=== PATIENT | female | born 1945 | race Caucasian/White ===

== ENCOUNTER → 2016-11-10 | Outpatient (CLI) | payer MEDICARE, OTHER ==
--- NOTE | 2016-11-10 20:23 | Diagnostic Imaging Report ---
Three views of the right foot. INDICATION: Right foot pain. FINDINGS: No fracture, dislocation or radiopaque foreign body is seen. There is satisfactory joint alignment seen. Prominent calcaneal spur is noted. There is also ossification along the distal aspect of the Achilles tendon with adjacent spurring at the calcaneus insertion site. Soft tissue swelling adjacent to the distal Achilles tendon site and also at the undersurface of the heel seen. There are degenerative changes also noted at the intertarsal joints and the interphalangeal joints. IMPRESSION: There are prominent calcaneal spurs and spurring at the distal Achilles tendon insertion site seen with adjacent soft tissue swelling posteriorly and at the undersurface of the heel. Dictated by: Dictated on workstation # [id number]
--- NOTE | 2016-11-10 20:25 | Diagnostic Imaging Report ---
Two views of the right heel. INDICATION: Heel pain. Calcaneus spur. FINDINGS: There is prominent spurring along the calcaneus undersurface and posteriorly along the insertion of the Achilles tendon with associated soft tissue swelling. No fracture or dislocation is seen. Degenerative sclerotic change at the subtalar joint is seen. IMPRESSION: Prominent calcaneal spur and spurring at the insertion of the Achilles tendon site with adjacent soft tissue swelling is seen. Dictated by: Dictated on workstation # [id number]
== END ==
LOC: RAD 16:16
DX: M77.31 Calcaneal spur, right foot (principal)
CPT/HCPCS: 73630; 73650

== ENCOUNTER 2022-04-23 18:45 | Observation (INO) | payer MEDICARE, OTHER ==
[~2022-04-23] VITALS: Ht 152 cm; Wt 75.0 kg
[2022-04-23 20:03] LABS: BASOPHILS % (AUTO) 1 % (0-10); EOSINOPHILS # (AUTO) 0.4 10^3/uL (0.0-0.3); EOSINOPHILS % (AUTO) 7 % (0-10); HEMATOCRIT 30 % (35-52); HEMOGLOBIN 9.6 g/dL (11.5-16.0); LYMPHOCYTES # (AUTO) 0.9 10^3/uL (1.0-4.0); LYMPHOCYTES % (AUTO) 14 % (12-44); MEAN CORPUSCULAR HEMOGLOBIN 28 pg (25-34); MEAN CORPUSCULAR HGB CONC 32 g/dL (32-36); MEAN CORPUSCULAR VOLUME 87 fL (80-99); MEAN PLATELET VOLUME 9.5 fL (9.0-12.2); MONOCYTES # (AUTO) 0.6 10^3/uL (0.0-1.0); MONOCYTES % (AUTO) 10 % (0-12); NEUTROPHILS # (AUTO) 4.4 10^3/uL (1.8-7.8); NEUTROPHILS % (AUTO) 68 % (42-75); PLATELET COUNT 127 10^3/uL (130-400); WHITE BLOOD COUNT 6.4 10^3/uL (4.3-11.0)
--- NOTE | 2022-04-23 20:13 | Diagnostic Imaging Report ---
PROCEDURE: CT head without contrast. TECHNIQUE: Multiple contiguous axial images were obtained through the brain without the use of intravenous contrast. Auto Exposure Controls were utilized during the CT exam to meet ALARA standards for radiation dose reduction. INDICATION: Altered mental status. Ataxic gait. COMPARISON: None. FINDINGS: Moderate generalized parenchymal volume loss and leukoaraiosis. Chronic lacunar infarct in the left thalamus. No intracranial hemorrhage, mass effect, hydrocephalus or extra-axial fluid collection. No CT evidence of a territorial infarction. Osseous structures are intact. Mastoids are clear. Mucosal thickening in the ethmoid and maxillary sinuses. IMPRESSION: 1. No acute intracranial CT finding. 2. Lacunar infarct in the left thalamus appears to be chronic. 3. Mucosal thickening in the maxillary and ethmoid sinuses. Dictated by: Dictated on workstation # [id number]
[2022-04-23 20:15] LABS: BILIRUBIN,URINE NEGATIVE (NEGATIVE); CLARITY,URINE CLEAR; COLOR,URINE YELLOW; GLUCOSE, URINE (UA) NEGATIVE (NEGATIVE); KETONES,URINE NEGATIVE (NEGATIVE); LEUKOCYTE ESTERASE ,URINE TRACE (NEGATIVE); NITRITE,URINE NEGATIVE (NEGATIVE); PH,URINE 6.5 (5-9); PROTEIN,URINE TRACE (NEGATIVE)
[2022-04-23 20:19] LABS: ALBUMIN 3.9 GM/DL (3.2-4.5); BILIRUBIN,TOTAL 0.4 MG/DL (0.1-1.0); CALCIUM 9.3 MG/DL (8.5-10.1); CREATININE SERUM 0.95 MG/DL (0.60-1.30); POTASSIUM 3.8 MMOL/L (3.6-5.0); TOTAL PROTEIN 7.3 GM/DL (6.4-8.2)
[2022-04-23 20:21] LABS: BACTERIA,URINE NEGATIVE /HPF; RBC,URINE RARE /HPF
--- NOTE | 2022-04-23 21:18 | ED Neurological Problem ---
General Chief Complaint: Neurological Problems Stated Complaint: CONFUSION Nursing Triage Note: patient ambulatory to ER w c/o confusion. Patient states "I am just fine, he is just in a panic." Patients states she is confused and couldn't get her sock off her foot at home. Patients states "she is usually on top of everything. Everything has to be perfect so I know something is wrong." Patient agitated with . Source: patient, family () Exam Limitations: no limitations History of Present Illness Date Seen by Provider: Apr 23, 2022 Time Seen by Provider: 19:10 Initial Comments Addie is a 76-year-old who presents to the emergency department today with her chief complaint of "confusion". She is quite belligerent at initial presentation stating she does not need to be in the emergency department. she is just "tired". She states she got up at 6 AM, drove to [place], she and her spent all day there. At some point in the afternoon her stated she started to act a little confused. After they got home she was attempting to take off her stockings, fumbled with them for quite a while was able to get 1 off and then tried to get the same one off the second time. He states she is very detail oriented and never confused. No falls. No injuries. No speech difficulties. No recent fevers, chills. She does endorse some incontinence that has started occurring over the last 2 weeks without dysuria urgency or frequency. No abnormal bowel movements. She has not missed or skipped any of her daily medications. She is a diabetic. She states she had not eaten all day today. Her blood sugar is 170. Unknown specific time of onset of symptoms this afternoon. All other review of systems reviewed and negative except as stated Timing/Duration: other (Unknown) Severity: mild Associated Symptoms: fatigue Allergies and Home Medications Allergies Coded Allergies: Penicillins (Verified Allergy, Unknown, 04/23/22) Patient Home Medication List Home Medication List Reviewed: Yes Review of Systems Review of Systems Constitutional: see HPI Eyes: No Symptoms Reported Ears, Nose, Mouth, Throat: no symptoms reported Respiratory: no symptoms reported Cardiovascular: no symptoms reported Gastrointestinal: no symptoms reported Genitourinary: incontinence (urge) : No Musculoskeletal: no symptoms reported Skin: no symptoms reported Psychiatric/Neurological: No Symptoms Reported Endocrine: Other (fatigue) All Other Systems Reviewed Negative Unless Noted: Yes Past Uonhoxl-Nwhiwu-Qxpiss Hx Patient Social History Tobacco Use?: No Substance use?: No Alcohol Use?: No Physical Exam Vital Signs Capillary Refill : Less Than 3 Seconds Height, Weight, BMI Height: '" Weight: lbs. oz. kg; 31.00 BMI Method: General Appearance: WD/WN, no apparent distress HEENT: PERRL/EOMI, pharynx normal Respiratory: lungs clear, normal breath sounds, no respiratory distress, no accessory muscle use Cardiovascular: regular rate, rhythm, systolic murmur (loud systolic murmur) Gastrointestinal: normal bowel sounds, non tender, soft Extremities: normal range of motion, non-tender, normal inspection, no pedal edema, normal capillary refill Neurologic/Psychiatric: alert, normal mood/affect, oriented x 3 (missed the year intitially "1922", corrected herself when I pointed it out; called our location "[place]" but corrected herself) Crainal Nerves: normal hearing, normal speech, PERRL; No abnormal eye position, No abnormal gag reflex, No abnormal speech, No facial asymmetry, No facial droop, No facial paresthesias, No facial weakness, No hearing deficit (R), No hearing deficit (L), No tongue deviation to R, No tongue deviation to L; other (trouble tracking gaze to the left; seemed to "past point" on finger to nose morewhen gaze deviated to the left) Coordination/Gait: ABN nose to finger (R), ABN nose to finger (L) (only when holding finger to the patient's left side; ?possiblelateral visual field def icit, although the patient states that she has lateral visual field.) Motor/Sensory: no motor deficit, no sensory deficit, no pronator drift Skin: normal color, warm/dry Stroke Onset of Symptoms Date of Onset of Symptoms: Apr 23, 2022 Onset of Symptoms: No Symptoms onset unknown: Yes NIH Stroke Scale Assessment Select: Initial Level of Consciousness: 0=Alert (0), Level of Consciousness- Questions: 0=Answers both month/age (0), LOC Commands: 0=Performs both tasks (0), Gaze: Normal (0), Visual Stewart: 1=Partial hemianopia (1), Facial Movement (Facial Paresis): 0=Normal symmetrical mnt (0), Motor Function-Arms Right: 0=No drift (0), Motor Function-Arms Left: 0=No drift (0), Motor Function-Legs Right: 0=No drift (0), Motor Function-Legs Left: 0=No drift (0), Limb Ataxia: 0=Absent (0), Sensory: 0=Normal:no loss (0), Best Language: 0=No aphasia (0), Dysarthria: 0=Normal (0), Extinction & Inattention: 0=No ab normality (0), Total: 1 Stroke Thrombolytic Exclusion Age 18 or Over: Yes Acute intenal hemorrhage: No History of CVA: No Uncontrolled Coagulation Defec: No Intracranial Hemorrhage: No Severe Hypertension: No GI or Bleed: No Subarachnoid Hemorrhage: No Intracranial Neoplasm/Aneurysm: No Oral Anticoagulants: No Surgery or Trauma: No Puncture of Non-Compressible V: No Recent CPR: No Diabetic Hemorrhagic Retinopat: No Organ Biopsy: No Recent Obstetric Delivery: No Glucose: No Significant Hepatic Dysfunctio: No NIH Stoke Scale >22: No Bacterial Endocarditis: No Pericarditis: No Improving Symptoms: No Platelets: No TPA Contraindication: Yes IV - TPa Received IV - TPa Procedure Performed?: No Progress/Results/Core Measures Results/Orders Lab Results My Orders Vital Signs/I&O Blood Pressure Mean: 108 FSBG Bedside Testing Finger Stick Blood Glucose: 178 Blood Glucose Action Taken: DR. MADRIGAL NOTIFIED. Progress Progress Note : Time: 21:10 Progress Note Patient seen and examined by me. 76yo with "confusion" per . Unknown specific time of onset. Eval today includes physical exam with neuro exam, CBC, BMP, UA and CT head without contrast, EKG and CXR. Patient's physical exam pertinent for a slight bit of confusion - patient had to correct herself on year and location. She had difficulty with finger to nose/tracking, especially with gaze to the left. She did not have smooth pursuit when tracking left. It almost seemed she had a lateral visual field loss on the left. Heart was regular with loud blowing systolic murmur - patient states she has known about this for years, however her former PCP stated to her this was "not a big deal". No LE edema, benign abdominal exam. DDx based on H&P includes, CVA/TIA, brain mass, infection/sepsis. Labs and imaging reviewed. Patient is slightly anemic (she states she has had a hemoglobin of "10" since she was 13yo); platelets down a little at 120. CHem normal. UA not infected. Brain CT shows likely old right thalamic infarct. EKG unremarkable for any acute ST segment change, although she does have prolonged QT interval, premature atrial contractions and a first degree AV block, Chest xray, prominence of the nadine bilaterally and atelectasis of left base. Rad recc Chest CT to further delineate. Based on the totality of physical exam findings and lab/imaging results, I thought it best to admit the patient for further eval. She states she has never had an echo or carotid US. Will admit to Dr Roberts [facility] to cardiac stepdown floor for monitoring and further workup. Initial ECG Impression Date: Apr 23, 2022 Initial ECG Impression Time: 19:55 Initial ECG Rate: 81 Initial ECG Rhythm: Normal Sinus Comment PAC; prolonged QTC; 1st degree AVB, no significant ST elevation or depression Diagnostic Imaging Diagonstic Imaging: CT Comments [facility] [place] NAME: ADDIE FUENTES [facility] REC#: [id number] PT STATUS: REG ER : 1945 PHYSICIAN: ANSLEY MADRIGAL MD ADMIT DATE: 04/23/22/ER Signed Date of Exam:04/23/22 CT HEAD WO PROCEDURE: CT head without contrast. TECHNIQUE: Multiple contiguous axial images were obtained through the brain without the use of intravenous contrast. Auto Exposure Controls were utilized during the CT exam to meet ALARA standards for radiation dose reduction. INDICATION: Altered mental status. Ataxic gait. COMPARISON: None. FINDINGS: Moderate generalized parenchymal volume loss and leukoaraiosis. Chronic lacunar infarct in the left thalamus. No intracranial hemorrhage, mass effect, hydrocephalus or extra-axial fluid collection. No CT evidence of a territorial infarction. Osseous structures are intact. Mastoids are clear. Mucosal thickening in the ethmoid and maxillary sinuses. IMPRESSION: 1. No acute intracranial CT finding. 2. Lacunar infarct in the left thalamus appears to be chronic. 3. Mucosal thickening in the maxillary and ethmoid sinuses. Dictated by: Dictated on workstation # [id number] Dict: 04/23/222007 Trans: 04/23/222103 [facility] [id number] Interpreted by: CATE ZIMMERMAN MD Electronically signed by: CATE ZIMMERMAN MD 04/23/222103 Diagonstic Imaging: Xray Plain Films/CT/US/NM/MRI: chest Comments [facility] [place] NAME: ADDIE FUENTES [facility] REC#: [id number] PT STATUS: REG ER : 1945 PHYSICIAN: ANSLEY MADRIGAL MD ADMIT DATE: 04/23/22/ER Signed Date of Exam:04/23/22 CHEST 1 VIEW, AP/PA ONLY EXAM: Chest 1 view, AP/PA only INDICATION: TIA. COMPARISON: None. FINDINGS: Normal heart size and central pulmonary vascularity. There is prominence of the nadine, bilaterally. Mild atelectasis or infiltrate in the right lung base. No pleural effusion or pneumothorax. No acute osseous finding. IMPRESSION: 1. Mild nonspecific prominence of the nadine, bilaterally. No priors are available for comparison. Findings could be due to some mild pulmonary vascular congestion. However, mediastinal lymphadenopathy cannot be excluded. Recommend chest CT for further evaluation. 2. Mild atelectasis or infiltrate in the right lung base. Dictated by: Dictated on workstation # [id number] Dict: 04/23/222154 Trans: 04/23/222215 [facility] [id number] Interpreted by: CATE ZIMMERMAN MD Electronically signed by: CATE ZIMMERMAN MD 04/23/222215 Departure Communication (Admissions) Time/Spoke to Admitting Phy: 21:[address] Roberts, hospitalist on [facility] medicine [facility] Time/Spoke to Consulting Phy: 21:[address] Saldana Impression Primary Impression: TIA (transient ischemic attack) Additional Impressions: Cardiac murmur Diabetes Qualified Codes: E11.69 - Type 2 diabetes mellitus with other specified complication Disposition: ADMITTED INPATIENT Condition: Stable Admissions Decision to Admit Reason: Admit from ER (General) Decision to Admit/Date: Apr 23, 2022 Time/Decision to Admit Time: 21:25 Departure-Patient Inst. Referrals: [facility] (PCP/Family) Primary Care Physician ANSLEY MADRIGAL MD Apr 23, 2022 21:17
--- NOTE | 2022-04-23 21:59 | Diagnostic Imaging Report ---
EXAM: Chest 1 view, AP/PA only INDICATION: TIA. COMPARISON: None. FINDINGS: Normal heart size and central pulmonary vascularity. There is prominence of the nadine, bilaterally. Mild atelectasis or infiltrate in the right lung base. No pleural effusion or pneumothorax. No acute osseous finding. IMPRESSION: 1. Mild nonspecific prominence of the nadine, bilaterally. No priors are available for comparison. Findings could be due to some mild pulmonary vascular congestion. However, mediastinal lymphadenopathy cannot be excluded. Recommend chest CT for further evaluation. 2. Mild atelectasis or infiltrate in the right lung base. Dictated by: Dictated on workstation # [id number]
[2022-04-23] MEDS ORDERED: ASPIRIN 81 MG CHEW (CHILDREN'S ASA) PO STA (23:42)
[2022-04-24] VITALS (12 sets, daily range): BP systolic 152–180; BP diastolic 70–111
[2022-04-24 04:16] LABS: BASOPHILS % (AUTO) 1 % (0-10); EOSINOPHILS # (AUTO) 0.4 10^3/uL (0.0-0.3); EOSINOPHILS % (AUTO) 6 % (0-10); HEMATOCRIT 29 % (35-52); HEMOGLOBIN 8.8 g/dL (11.5-16.0); LYMPHOCYTES # (AUTO) 1.5 10^3/uL (1.0-4.0); LYMPHOCYTES % (AUTO) 26 % (12-44); MEAN CORPUSCULAR HEMOGLOBIN 27 pg (25-34); MEAN CORPUSCULAR HGB CONC 31 g/dL (32-36); MEAN CORPUSCULAR VOLUME 88 fL (80-99); MEAN PLATELET VOLUME 10.1 fL (9.0-12.2); MONOCYTES # (AUTO) 0.7 10^3/uL (0.0-1.0); MONOCYTES % (AUTO) 11 % (0-12); NEUTROPHILS # (AUTO) 3.3 10^3/uL (1.8-7.8); NEUTROPHILS % (AUTO) 56 % (42-75); PLATELET COUNT 120 10^3/uL (130-400); WHITE BLOOD COUNT 5.8 10^3/uL (4.3-11.0)
[2022-04-24 04:43] LABS: ALBUMIN 3.5 GM/DL (3.2-4.5); BILIRUBIN,TOTAL 0.4 MG/DL (0.1-1.0); CALCIUM 8.8 MG/DL (8.5-10.1); CREATININE SERUM 0.83 MG/DL (0.60-1.30); POTASSIUM 3.7 MMOL/L (3.6-5.0); TOTAL PROTEIN 6.6 GM/DL (6.4-8.2)
--- NOTE | 2022-04-24 05:50 | History & Physical-Hospitalist ---
History of Present Illness HPI/Chief Complaint CC: TIA HPI: This is a 76yoWF clinic patient of [facility] who presented to the ER with complaints of non-specific neuro deficits concerning for a TIA. CT normal and no neuro deficits are noted today. ASA given and ECHO revealed significant valvular heart disease so it will need close f/u with Dr Barbosa. Source: patient, family Exam Limitations: no limitations Date Seen 04/24/22 Time Seen by a Provider: 11:00 Attending Physician [place] PCP Admitting Physician: Antonette Roberts DO Attending Physician: Antonette Roberts DO Referring Physician Date of Admission Apr 23, 2022 at 18:47 Home Medications & Allergies Home Medications Reviewed patient Home Medication Reconciliation performed by pharmacy medication reconciliations pathology lab technician and/or nursing. Patients Allergies have been reviewed. Allergies Allergies Coded Allergies Penicillins (Verified Allergy, Unknown, 04/23/22) Past Oshjggi-Ybvzpm-Pbxgvc Hx Patient Social History Marrital Status: Employed/Student: retired Tobacco Use?: No Smoking Status: Never a Smoker Use of E-Cig and/or Vaping dev: No Substance use?: No Alcohol Use?: No Pt feels they are or have been: No Immunizations Up To Date Tetanus Booster (TDap): Unknown Hepatitis A: No Hepatitis B: No Current Status status: No status: No Advance Directives: No Communicates: Verbally Primary Language: Ghanaian Preferred Spoken Language: Ghanaian Is interpretation needed?: No Implanted or Applied Medical D: None Past Medical History Diabetes, Non-Insulin dep Review of Systems Constitutional: see HPI, malaise, weakness EENTM: no symptoms reported Respiratory: no symptoms reported Cardiovascular: no symptoms reported Gastrointestinal: no symptoms reported Genitourinary: no symptoms reported Musculoskeletal: no symptoms reported Skin: no symptoms reported Psychiatric/Neurological: No Symptoms Reported All Other Systems Reviewed Negative Unless Noted: Yes Physical Exam Physical Exam Vital Signs Vital Signs - First Documented 04/23/22 18:54 Temp 35.4 Pulse 82 Resp 18 B/P (MAP) 203/61 (108) Pulse Ox 98 O2 Delivery Room Air Capillary Refill : Less Than 3 Seconds Height, Weight, BMI Height: '" Weight: lbs. oz. kg; 32.46 BMI Method: General Appearance: No Apparent Distress, Chronically ill Eyes: Right Eye Normal Inspection, Right Eye PERRL HEENT: PERRL/EOMI, Normal ENT Inspection, Pharynx Normal, Moist Mucous Membranes Neck: Full Range of Motion, Normal Inspection, Non Tender Respiratory: Chest Non Tender, Lungs Clear, Normal Breath Sounds, No Accessory Muscle Use, No Respiratory Distress Cardiovascular: Regular Rate, Rhythm, No Edema, No Gallop, No JVD, Normal Peripheral Pulses, Systolic Murmur Gastrointestinal: Normal Bowel Sounds, No Organomegaly, No Pulsatile Mass, Non Tender, Soft Back: Normal Inspection, No CVA Tenderness, No Vertebral Tenderness Extremity: Normal Capillary Refill, Normal Inspection, Normal Range of Motion, Non Tender, No Calf Tenderness, No Pedal Edema Neurologic/Psychiatric: Alert, Oriented x3, No Motor/Sensory Deficits, Normal Mood/Affect Skin: Normal Color, Warm/Dry Lymphatic: No Adenopathy Results Results/Procedures Labs Laboratory Tests 04/23/22 19:49 04/24/22 03:52 Patient resulted labs reviewed. Assessment/Plan Admission Diagnosis Assessment: TIA Cardiac murmur with mitral and aortic stenosis DM Plan: Monitor closely ECHO Cardiology consultation Admission Status: Observation Diagnosis/Problems Diagnosis/Problems (1) TIA (transient ischemic attack) Status: Acute (2) Cardiac murmur Status: Acute (3) Diabetes Status: Acute Qualifiers: Diabetes mellitus type: type 2 Diabetes mellitus adjunct faculty for medical terminology insulin use: without longterm use Diabetes mellitus complication status: with other specified complication Qualified Codes: E11.69 - Type 2 diabetes mellitus with other specified complication Clinical Quality Measures Stroke: Date of last known well: Apr 23, 2022 Symptoms onset unknown: Yes ANTONETTE ROBERTS DO Apr 24, 2022 05:50
[2022-04-24] MEDS ORDERED: MILK OF MAGNESIA 400 MG/5 ML 30 ML UDC PO PRN (06:00)
[2022-04-24] MEDS ORDERED: polyethylene glycoL POWDER 17 GM (MIRALAX) PACK PO PRN (06:00)
[2022-04-24] MEDS ORDERED: HYDROmorphone 2 MG/ML VIAL (DILAUDID) IV PRN (06:00)
[2022-04-24] MEDS ORDERED: KCL 20 MEQ TAB (K-DUR) PO SCH (06:00)
[2022-04-24] MEDS ORDERED: ANTACID SUSP 30 ML UDC (MYLANTA) PO PRN (06:00)
[2022-04-24] MEDS ORDERED: ONDANSETRON 4 MG/2 ML (SDV) Z0FRAN IV PRN (06:00)
[2022-04-24] MEDS ORDERED: diphenhydrAMINE 25 MG TAB (BENADRYL) PO PRN (06:00)
[2022-04-24] MEDS ORDERED: NS IV 500 ML 500 ML IV PRN (06:00)
[2022-04-24] MEDS ORDERED: LACTULOSE SYRUP 10GM/15ML (ENULOSE) 30ML UDC PO PRN (06:00)
[2022-04-24] MEDS ORDERED: ONDANSETRON 4 MG (ZOFRAN) ORAL DISSOLVE TAB PO PRN (06:00)
[2022-04-24] MEDS ORDERED: POTASSIUM CL 10MEQ/50ML IVPB 50 ML IV SCH (06:00)
[2022-04-24] MEDS ORDERED: diphenhydrAMINE 50 MG/ML INJ (BENADRYL) IVP PRN (06:00)
[2022-04-24] MEDS ORDERED: ACETAMINOPHEN 325 MG TABLET PO PRN (06:00)
[2022-04-24] MEDS ORDERED: MELATONIN 3 MG TABLET PO PRN (06:00)
[2022-04-24] MEDS ORDERED: MAGNESIUM 1 GM/100 ML IVPB 100 ML IV SCH (06:00)
[2022-04-24] MEDS ORDERED: CALCIUM CARBONATE 500 MG (TUMS) TAB.CHEW PO PRN (06:00)
[2022-04-24] MEDS ORDERED: BISACODYL 10 MG SUPP (DULCOLAX) PR PRN (06:00)
[2022-04-24] MEDS ORDERED: ENOXAPARIN 40 MG/0.4 ML (LOVENOX) SYR SC SCH (06:00)
[2022-04-24] MEDS ORDERED: KCL 20 MEQ TAB (K-DUR) PO ONE (08:00)
--- NOTE | 2022-04-24 08:20 | Tele-ICU Consult ---
History of Present Illness History of Present Illness Date Seen by Provider: Apr 24, 2022 Time Seen by Provider: 08:19 Date of Admission 04/24/22 History of Present Illness (Tele-ICU Physician , consultation) Available chart/ vitals / labs / Images reviewed H&P is from ER notes Patient's information available about PMH, allergy reviewed in EMR. ROS as per chart and RN report Video assessment done using teleICU camera, rest of exam as per RN Discussed with RN. 76-year-old female with past medical history of anemia of undetermined origin being followed by her primary physician presented to the emerged urgency room for confusion. CT of the head was done and showed no acute abnormality there is no mention of any fever nausea vomiting headache she was admitted to ICU for close monitoring and this a.m. and made a video visit and discussed with her she is found to be even though she was confused yesterday for ER note her platelet and hemoglobin found to be low, but MCV is normal. She was not told any time that she had any bone marrow abnormalities vitamin B12 was ordered and pending TSH is normal serum iron studies are pending. Impression 1. Confusional state the etiology of which is not clear. 2. Hilar prominence on the chest x-ray present needs to rule out any hilar adenopathy 1. You have hemoglobin being low in the low platelet without any definite etiology bone marrow disorders has to be ruled out. Recommendations 1. We will check her vitamin B12 and serum iron studies 2. Suggest bone marrow biopsy , could be done as an outpatient. 3. An MRI of the brain also suggested 4. CT of the chest with contrast to rule out any hilar adenopathy and malignancy. Coordination of care with bedside consultants and primary care physician. Discussed with the SECURITY ASSURANCE ANALYST and advised her to reach ou to telemetry ICU t for any questions or concerns. Allergies and Home Medications Allergies Coded Allergies: Penicillins (Verified Allergy, Unknown, 04/23/22) Past Medical/Social/Family Hx Patient Social History Tobacco Use?: No Use of E-Cig and/or Vaping dev: No Substance use?: No Alcohol Use?: No Pt stated abuse/neglect: No Immunizations Up To Date Influenza Vaccine Up-to-Date: Yes; Up-to-Date Tetanus Booster (TDap): Unknown Hepatitis A: No Hepatitis B: No TB Skin Test: None Current Status status: No status: No Advance Directives: No Communicates: Verbally Primary Language: Filipino Preferred Spoken Language: Filipino Is interpretation needed?: No Implanted or Applied Medical D: None Review of Systems Constitutional: no symptoms reported, see HPI Focused Exam Height, Weight, BMI Height: '" Weight: lbs. oz. kg; 32.46 BMI Method: Exam Exam Patient acknowledged, consented, and participated in this virtual visit which was conducted using real time audio/video Vital Signs Date Time Temp Pulse Resp B/P (MAP) Pulse Ox O2 Delivery O2 Flow Rate FiO2 04/24/22 08:00 37.2 78 16 153/74 (100) 98 Room Air 04/24/22 07:00 73 04/24/22 05:00 71 19 154/85 (108) 96 Room Air 04/24/22 04:00 77 16 153/70 (97) 95 Room Air 04/24/22 03:45 37.2 78 18 97 Room Air 04/24/22 03:00 70 28 152/90 (110) 96 Room Air 04/24/22 02:00 79 18 152/111 (125) 92 Room Air 04/24/22 01:30 83 18 97 Room Air 04/24/22 01:00 78 18 168/75 (106) 96 Room Air 04/24/22 00:45 78 15 165/109 (127) 98 Room Air 04/24/22 00:38 82 04/24/22 00:30 77 16 156/81 (106) 97 Room Air 04/24/22 00:15 36.5 84 20 180/105 (130) 97 Room Air 04/24/22 00:13 97 Room Air 04/24/22 00:07 35.4 75 16 152/78 96 Room Air 04/23/22 19:20 Room Air 04/23/22 18:54 35.4 82 18 203/61 (108) 98 Room Air I & O 04/24/22 07:00 Intake Total 100 ml Output Total 750 ml Balance -650 ml Height & Weight Height: '" Weight: lbs. oz. kg; 32.46 BMI Method: General Appearance: Anxious Capillary Refill: Less Than 3 Seconds Gastrointestinal: normal bowel sounds, non tender, soft Other comments I am remotely monitoring this patient from another state. I am unable to do the bedside exam, and history/physical and pertinent information is taken from other notes in the computer and bedside staff. . Results Lab Laboratory Tests 04/23/22 19:49 04/24/22 03:52 Assessment/Plan Assessment/Plan as above Critical Care: Critically Ill Patient Time spent with patient (mins): 31 MADELYN RAMIREZ MD Apr 24, 2022 08:19
[2022-04-24] MEDS ORDERED: DOCUSATE SODIUM 100 MG (COLACE) CAP PO SCH (09:00)
[2022-04-24] MEDS ORDERED: ASPIRIN E.C. 81 MG (ECOTRIN) TAB PO SCH (09:00)
[2022-04-24] MEDS ORDERED: SENNOSIDES 8.6 MG (SENOKOT) TAB PO SCH (09:00)
[2022-04-24] MEDS ORDERED: METF-397 PO (11:04)
[2022-04-24] MEDS ORDERED: ROSU10TA28 PO (11:04)
[2022-04-24] MEDS ORDERED: ASPI-1238 PO (11:05)
--- NOTE | 2022-04-24 12:07 | Physical Therapy Evaluation ---
PT Evaluation-General Medical Diagnosis Admission Date Apr 23, 2022 at 18:47 Medical Diagnosis: TIA Onset Date: Apr 24, 2022 Therapy Diagnosis Therapy Diagnosis: Impaired gait Precautions Precautions/Isolations: Fall Prevention, Standard Precautions Referral Reason for Referral: Evaluation/Treatment Medical History Pertinent Medical History: Atrial Fib Additional Medical History TIA, cardiac murmur Social History Home: Single Level Current Living Status: Significant Other Prior Prior Level of Function SCALE: Activities may be completed with or without assistive devices. 5-Cnmfxknjns-gxnkcpy completes the activity by him/herself with no assistance from a helper. 5-Set-up or Clean-up Assistance-helper sets up or cleans up; patient completes activity. [place] assists only prior to or following the activity. 4-Supervision or Touching Assistance-helper provides verbal cues and/or touching/steadying and/or contact guard assistance as patient completes activity. Assistance may be provided throughout the activity or intermittently. 3-Partial/Moderate Assistance-helper does LESS THAN HALF the effort. [place] lifts, holds or supports trunk or limbs, but provides less than half the effort. 2-Substantial/Maximal Assistance-helper does MORE THAN HALF the effort. [place] lifts or holds trunk or limbs and provides more than half the effort. 2-Gbybouvxe-jbxnud does ALL the effort. Patient does none of the effort to complete the activity. Or, the assistance of 2 or more helpers is required for the patient to complete the activity. If activity was not attempted, code reason: 7-Patient Refused. 9-Not Applicable-not attempted and the patient did not perform the activity befo re the current illness, exacerbation or injury. 10-Not Attempted due to Environmental Limitations-(lack of equipment, weather re straints, etc.). 88-Not Attempted due to Medical Conditions or Safety Concerns. Bed Mobility: 6 Transfers (B,C,W/C): 6 Gait: 6 Stairs: 6 PT Evaluation-Current Subjective Brought to ER by due to reported decline in mental status. Pt was having confusion and impaired motor planning. Objective Patient Orientation: Person, Place, Situation ROM/Strength Strength Upper Extremities 5/5 Strength Lower Extremities 5/5 Sensory Vision: Functional Hearing: Functional Sensation Right Upper Extremit: Intact Sensation Left Upper Extremity: Intact Sensation Right Lower Extremit: Intact Sensation Left Lower Extremity: Intact Transfers Roll Left to Right (QC): 6 Sit to Lying (QC): 6 Lying to Sitting/Side of Bed(Q: 6 Sit to Stand (QC): 6 Chair/Cqt-nk-Lmqvo Xfer(QC): 6 Pt was independent with mobility. Gait Does the Patient Walk?: Yes Mode of Locomotion: Walk Anticipated Mode of Locomotion: Walk Walk 150 ft (QC): 6 Distance: 300 Gait Assistive Device: None Comments/Gait Description Ambulate 300ft without device, minimal lateral deviation, no LOB. Pt very rushed and needed cues to slow down. Balance Sitting Static: Normal Sitting Dynamic: Normal Standing Static: Good Standing Dynamic: Good Assessment/Needs Pt had no focal strength deficit. She demonstrated independence with donning pants, bed mobility, transfers, and gait. Her biggest safety risk is that she is in a hurry with all tasks and doesn't allow time to consider safety during standing transfers and gait. Rehab Potential: Good PT Driver Starting [facility] Goals [facility] Goals PT Driver Starting Gate Goals Time Frame: Apr 24, 2022 Roll Left & Right (QC): 6 Sit to Lying (QC): 6 Lying-Sitting on Side/Bed(QC): 6 Sit to Stand (QC): 6 Chair/Olg-kq-Jszwz Xfer(QC): 6 PT Plan Problem List Problem List: Safety Treatment/Plan Treatment Plan: Continue Plan of Care, Discontinue PT, goals met Treatment Duration: Apr 24, 2022 Frequency: Discharge Recommendations Therapy Discharge Recommendati: Home & Family Target Placement home Time Time In: 1040 Time Out: 1100 DATE: Apr 24, 2022 Total Billed Treatment Time: 20 Total Billed Treatment visit, evaluation moderate complexity 20 min KRISHAN FOWLER PT Apr 24, 2022 12:07
--- NOTE | 2022-04-24 13:18 | Consultation-Cardiology ---
HPI-Cardiology Cardiology Consultation: Date of Consultation 04/24/22 Time Seen by a Provider: 12:50 Date of Admission Attending Physician [place] Admitting Physician Admitting Physician: Antonette Roberts DO Attending Physician: Antonette Roberts DO Consulting Physician EDITH WILSON MD, MA, FACP, FACC, [facility] [place], CCDS Physician requesting consult: Dr Roberts HPI: Chief Complaint: Reason for Card consult: Cardiac murmur 76 yo woman who was admitted to Dr Roberts's service on 04/23/22 with transient, mild confusion, although she herself denies it. Dr Roberts has asked us today to see her for a cardiac murmur. Ms. Dolan says murmur was first diagnosed well over 10 years ago. At one point, she saw a wooden shade hardware installer in [place], [place] for the murmur but no further w/u or f/u was advised. She denies cp or palp or syncope or shortness of breath or swelling. She denies focal weakness. Review of Systems-Cardiology Review of Systems Constitutional: No malaise, No tiredness, No weight loss Eyes: No vision change Ears/Nose/Throat: No ear discharge, No nasal drainage, No recent hearing loss Respiratory: As described under HPI Cardiovascular: As described under HPI Gastrointestinal: No diarrhea, No nausea, No vomiting Genitourinary: No dysuria, No hematuria, No urine frequency changes : No Musculoskeletal: back pain (chornic) Skin: No rash, No ulcerations Psychiatric/Neurological: No seizure, No focal weakness, No syncope Hematologic: No bleeding abnormalities All Other Systems Reviewed Negative Unless Noted: Yes GKR-Shvknj-Tqeitc Hx Patient Social History Have you traveled recently?: No Alcohol Use?: No Pt feels they are or have been: No Past Medical History PMH As described under Assessment. Family Medical History Family Medical History: She does not report fam h/o early CAD or SCD. Does not fam h/o strokes Allergies and Home Medications Allergies Coded Allergies: Penicillins (Verified Allergy, Unknown, 04/23/22) Patient Home Medication List Home Medication List Reviewed: Yes Aspirin (Aspirin EC) 81 Mg Tablet., 81 MG PO DAILY Prescribed by: ANTONETTE ROBERTS on 04/24/22 1105 Metformin HCl (Metformin HCl) 500 Mg Tablet, 500 MG PO UD, (Reported) Entered as Reported by: ANTONETTE ROBERTS on 04/24/221103 Last Action: New Order Rosuvastatin Calcium (Rosuvastatin Calcium) 10 Mg Tablet, 10 MG PO DAILY, (Reported) Entered as Reported by: ANTONETTE ROBERTS on 04/24/221103 Last Action: New Order Physical Exam-Cardiology Physical Exam Vital Signs/I&O 04/24/22 04/24/22 04/24/22 04/24/22 01:30 02:00 03:00 03:45 Temp 37.2 Pulse 83 79 70 78 Resp 18 18 28 18 B/P (MAP) 152/111 (125) 152/90 (110) Pulse Ox 97 92 96 97 O2 Delivery Room Air Room Air Room Air Room Air 04/24/22 04/24/22 04/24/22 04/24/22 04:00 05:00 07:00 08:00 Temp 37.2 Pulse 77 71 73 78 Resp 16 19 16 B/P (MAP) 153/70 (97) 154/85 (108) 153/74 (100) Pulse Ox 95 96 98 O2 Delivery Room Air Room Air Room Air 04/24/22 04/24/22 04/24/22 08:00 11:53 12:50 Temp 36.9 Pulse 78 75 Resp 24 B/P (MAP) 156/85 (108) Pulse Ox 97 95 O2 Delivery Room Air Room Air Capillary Refill : Less Than 3 Seconds Constitutional: AAO x 3, well-developed, well-nourished HEENT: EOMI, hearing is well preserved; No xanthelasmas are seen Neck: carotid pulses are 2 + bilaterally, with good upstrokes Respiratory: No accessory muscle use; chest expansion is symmetric, chest is bilaterally symmetric, other (fair to good, bilateral air entry) Cardiovascular: regular rate-rhythm, S1 and S2, systolic murmur (3/[address] base that radiates to the carotids) Gastrointestinal: No tender; soft; No guarding, No rebound; audible bowel sounds Extremities: No clubbing, No cyanosis, No significant edema Neurologic/Psychiatric: oriented x 3, other (moves all limbs equally) Skin: No rash on exposed areas, No ulcerations on exposed areas Data Review Labs Laboratory Tests 04/23/22 19:21: Glucometer 178H 04/23/22 19:25: Urine Color YELLOW, Urine Clarity CLEAR, Urine pH 6.5, Urine Specific [place] 1.020, Urine Protein TRACEH, Urine Glucose (UA) NEGATIVE, Urine Ketones N EGATIVE, Urine Nitrite NEGATIVE, Urine Bilirubin NEGATIVE, Urine Urobilinogen 1.0, Urine Leukocyte Esterase TRACEH, Urine RBC (Auto) 1+H, Urine RBC RARE, Urin e WBC NONE, Urine Squamous Epithelial Cells 2-5, Urine Crystals NONE, Urine Bacteria NEGATIVE, Urine Casts NONE, Urine Mucus NEGATIVE, Urine Culture Indicated NO 04/23/22 19:49: White Blood Count 6.4, Red Blood Count 3.47L, Hemoglobin 9.6L, Hematocrit 30L, Mean Corpuscular Volume 87, Mean Corpuscular Hemoglobin 28, Mean Corpuscular Hemoglobin Concent 32, Red Cell Distribution Width 13.6, Platelet Count 127L, Mean Platelet Volume 9.5, Immature Granulocyte % (Auto) 0, Neutrophils (%) (Auto) 68, Lymphocytes (%) (Auto) 14, Monocytes (%) (Auto) 10, Eosinophils (%) (Auto) 7, Basophils (%) (Auto) 1, Neutrophils # (Auto) 4.4, Lymphocytes # (Auto) 0.9L, Monocytes # (Auto) 0.6, Eosinophils # (Auto) 0.4H, Basophils # (Auto) 0.0, Immature Granulocyte # (Auto) 0.0, Sodium Level 141, Potassium Level 3.8, Chloride Level 103, Carbon Dioxide Level 28, Anion Gap 10, Blood Urea Nitrogen 17, Creatinine 0.95, Estimat Glomerular Filtration Rate 62, BUN/Creatinine Ratio 18, Glucose Level 177H, Calcium Level 9.3, Corrected Calcium 9.4, Total Bilirubin 0.4, Aspartate Amino Transf (AST/SGOT) 12, Alanine Aminotransferase (ALT/SGPT) 9, Alkaline Phosphatase 57, Total Protein 7.3, Albumin 3.9 04/24/22 03:52: White Blood Count 5.8, Red Blood Count 3.24L, Hemoglobin 8.8L, Hematocrit 29L, Mean Corpuscular Volume 88, Mean Corpuscular Hemoglobin 27, Mean Corpuscular Hemoglobin Concent 31L, Red Cell Distribution Width 13.6, Platelet Count 120L, Mean Platelet Volume 10.1, Immature Granulocyte % (Auto) 0, Neutrophils (%) (Auto) 56, Lymphocytes (%) (Auto) 26, Monocytes (%) (Auto) 11, Eosinophils (%) (Auto) 6, Basophils (%) (Auto) 1, Neutrophils # (Auto) 3.3, Lymphocytes # (Auto) 1.5, Monocytes # (Auto) 0.7, Eosinophils # (Auto) 0.4H, Basophils # (Auto) 0.0, Immature Granulocyte # (Auto) 0.0, Sodium Level 140, Potassium Level 3.7, Chloride Level 104, Carbon Dioxide Level 26, Anion Gap 10, Blood Urea Nitrogen 14, Creatinine 0.83, Estimat Glomerular Filtration Rate 73, BUN/Creatinine Ratio 17, Glucose Level 122H, Calcium Level 8.8, Corrected Calcium 9.2, Total Bilirubin 0.4, Aspartate Amino Transf (AST/SGOT) 11, Alanine Aminotransferase (ALT/SGPT) 8, Alkaline Phosphatase 52, Total Protein 6.6, Albumin 3.5, Triglycerides Level 36, Cholesterol Level 114, LDL Cholesterol Direct 45, VLDL Cholesterol 7, HDL Cholesterol 54, Thyroid Stimulating Hormone (TSH) 1.54 04/24/22 10:34: Glucometer 119H Laboratory Tests 04/23/22 19:49 04/24/22 03:52 A/P-Cardiology Assessment/Admission Diagnosis Transient confusion on 04/23/22, etiology undetermined - managed by Dr. 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 Mucosal thickening in the maxillary and ethmoid sinuses Cardiac systolic murmur suggestive of aortic valve sclerosis/stenosis DM II - treated with metformin, managed by pcp Hyperlipidemia - treated with statin, managed by pcp Hypertension Mild sinus node dysfunction - sinus alternating with ectopic atrial rhythm on ECG of 04/23/22 and subsequent telemetry (no bradycardia) Discussion and Recomendations * ASA because of old CVA * Toprol XL 25 daily for hypertension * Echo to eval murmur * Outpt card f/u recommended * We also recommend carotid u/s which can be done outpt if pt is to be d/c'd today Clinical Quality Measures Stroke: Date of last known well: Apr 23, 2022 Symptoms onset unknown: Yes EDITH WILSON MD FACP FAC CCDS Apr 24, 2022 13:18
[2022-04-24] MEDS ORDERED: METO-351 PO (16:58)
--- NOTE | 2022-04-24 16:58 | Discharge Summary ---
Discharge Summary Hospital Course Was the Problem List Reviewed?: Yes Problems/Dx: (1) TIA (transient ischemic attack) Status: Acute (2) Cardiac murmur Status: Acute Hospital Course Date of Admission: Apr 23, 2022 at 18:47 Admission Diagnosis : Family Physician[facility]Provider[facility] Date of Discharge: 04/24/22 Discharge Diagnosis: [ ] Hospital Course: see h&p Labs and Pending Lab Test: Laboratory Tests 04/23/22 19:21: Glucometer 178H 04/23/22 19:25: Urine Color YELLOW, Urine Clarity CLEAR, Urine pH 6.5, Urine Specific [place] 1.020, Urine Protein TRACEH, Urine Glucose (UA) NEGATIVE, Urine Ketones NEGATIVE, Urine Nitrite NEGATIVE, Urine Bilirubin NEGATIVE, Urine Urobilinogen 1.0, Urine Leukocyte Esterase TRACEH, Urine RBC (Auto) 1+H, Urine RBC RARE, Urine WBC NONE, Urine Squamous Epithelial Cells 2-5, Urine Crystals NONE, Urine Bacteria NEGATIVE, Urine Casts NONE, Urine Mucus NEGATIVE, Urine Culture Indicated NO 04/23/22 19:49: White Blood Count 6.4, Red Blood Count 3.47L, Hemoglobin 9.6L, Hematocrit 30L, Mean Corpuscular Volume 87, Mean Corpuscular Hemoglobin 28, Mean Corpuscular Hemoglobin Concent 32, Red Cell Distribution Width 13.6, Platelet Count 127L, Mean Platelet Volume 9.5, Immature Granulocyte % (Auto) 0, Neutrophils (%) (Auto) 68, Lymphocytes (%) (Auto) 14, Monocytes (%) (Auto) 10, Eosinophils (%) (Auto) 7, Basophils (%) (Auto) 1, Neutrophils # (Auto) 4.4, Lymphocytes # (Auto) 0.9L, Monocytes # (Auto) 0.6, Eosinophils # (Auto) 0.4H, Basophils # (Auto) 0.0, Immature Granulocyte # (Auto) 0.0, Sodium Level 141, Potassium Level 3.8, C hloride Level 103, Carbon Dioxide Level 28, Anion Gap 10, Blood Urea Nitrogen 17, Creatinine 0.95, Estimat Glomerular Filtration Rate 62, BUN/Creatinine Ratio 18, Glucose Level 177H, Calcium Level 9.3, Corrected Calcium 9.4, Iron Level [Pending], Total Iron Binding Capacity [Pending], Unsaturated Iron Binding Capacity [Pending], Transferrin % Saturation [Pending], Ferritin [Pending], Total Bilirubin 0.4, Aspartate Amino Transf (AST/SGOT) 12, Alanine Aminotransferase (ALT/SGPT) 9, Alkaline Phosphatase 57, Total Protein 7.3, Albumin 3.9 04/24/22 03:52: White Blood Count 5.8, Red Blood Count 3.24L, Hemoglobin 8.8L, Hematocrit 29L, Mean Corpuscular Volume 88, Mean Corpuscular Hemoglobin 27, Mean Corpuscular Hemoglobin Concent 31L, Red Cell Distribution Width 13.6, Platelet Count 120L, Mean Platelet Volume 10.1, Immature Granulocyte % (Auto) 0, Neutrophils (%) (Auto) 56, Lymphocytes (%) (Auto) 26, Monocytes (%) (Auto) 11, Eosinophils (%) (Auto) 6, Basophils (%) (Auto) 1, Neutrophils # (Auto) 3.3, Lymphocytes # (Auto) 1.5, Monocytes # (Auto) 0.7, Eosinophils # (Auto) 0.4H, Basophils # (Auto) 0.0, Immature Granulocyte # (Auto) 0.0, Sodium Level 140, Potassium Level 3.7, Chloride Level 104, Carbon Dioxide Level 26, Anion Gap 10, Blood Urea Nitrogen 14, Creatinine 0.83, Estimat Glomerular Filtration Rate 73, BUN/Creatinine Ratio 17, Glucose Level 122H, Calcium Level 8.8, Corrected Calcium 9.2, Iron Level [Pending], Total Bilirubin 0.4, Aspartate Amino Transf (AST/SGOT) 11, Alanine Aminotransferase (ALT/SGPT) 8, Alkaline Phosphatase 52, Total Protein 6.6, Albumin 3.5, Mean Blood Glucose [Pending], Hemoglobin A1c [Pending], Triglycerides Level 36, Cholesterol Level 114, LDL Cholesterol Direct 45, VLDL Cholesterol 7, HDL Cholesterol 54, Vitamin B12 Level [Pending], Thyroid Stimulating Hormone (TSH) 1.54 04/24/22 10:34: Glucometer 119H 04/24/22 15:31: Glucometer 109 Home Meds Active Aspirin EC (Aspirin) 81 Mg Tablet.dr 81 Mg PO DAILY Reported Rosuvastatin Calcium 10 Mg Tablet 10 Mg PO DAILY Metformin HCl 500 Mg Tablet 500 Mg PO UD 2 pills in am and 1 in evening Assessment/Pt Instructions pcp 1 week Discharge Planning: <30 minutes discharge planning Discharge Instructions Discharge Diet: No Restrictions Discharge Physical Examination Vital Signs Vital Signs Date Time Temp Pulse Resp B/P (MAP) Pulse Ox O2 Delivery O2 Flow Rate FiO2 04/24/22 16:00 36.9 73 18 166/83 (110) 97 Room Air Allergies: Coded Allergies: Penicillins (Verified Allergy, Unknown, 04/23/22) Discharge Summary Date of Admission Apr 23, 2022 at 18:47 Date of Discharge Discharge Date: Apr 24, 2022 Clinical Quality Measures Stroke: Date of last known well: Apr 23, 2022 Symptoms onset unknown: Yes MIRANDA JIMÉNEZ DO Apr 24, 2022 16:58
== END 2022-04-24 18:18 | disposition home or self-care (01) ==
LOC: EDUNIT# 18:45 → ER 18:46 → ICU 18:47
PROVIDERS: ADMIT Internal Medicine; ATTEND Internal Medicine
DX: G45.9 Transient cerebral ischemic attack, unspecified (principal); R29.701 NIHSS score 1; I08.0 Rheumatic disorders of both mitral and aortic valves; I49.5 Sick sinus syndrome; I10 Essential (primary) hypertension; I62.9 Nontraumatic intracranial hemorrhage, unspecified; E11.69 Type 2 diabetes mellitus with other specified complication; E78.5 Hyperlipidemia, unspecified; Z79.84 Long term (current) use of oral hypoglycemic drugs; Z79.899 Other long term (current) drug therapy
CPT/HCPCS: 70450; 71045; 80053 ×2; 80061; 81000; 82607; 82728; 82947 ×2; 83036; 83540 ×2; 83550; 84443; 85025 ×2; 87081; 97162; 99284; C8929; 36415; 93005; 93306; 96372